=== PATIENT | female | born 1950 ===

== ENCOUNTER 2017-04-29 10:17 | Inpatient (IN) | payer MEDICARE, OTHER ==
--- NOTE | 2017-04-29 11:01 | ED PDOC ---
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 Per pt's , the pt was walking and was on her way for a PCP visit when she fell and landed on her left side. Pt is now complaining of left leg and left groin pain. She denies any numbness or tingling. Pt offers no additional medical complaints. - Fall Fall:Prior To Injury: Tripped Past Medical History Reviewed: Historical Data, Nursing Documentation, Vital Signs Vital Signs: Last Vital Signs Temp 98.5 F 04/29/17 10:30 Pulse 71 04/29/17 10:30 Resp 18 04/29/17 10:30 BP 153/80 H 04/29/17 10:30 Pulse Ox 100 04/29/17 11:07 - Medical History PMH: Osteoporosis - Surgical History Other surgeries: Hysterectomy - Family History Family History: States: Unknown Family Hx - Living Arrangements Living Arrangements: With Family - Social History Current smoker - smoking cessation education provided: No Alcohol: None Drugs: Denies - Allergies Allergies/Adverse Reactions: Allergies Allergy/AdvReac Type Severity Reaction Status Date / Time No Known Allergies Allergy Verified 04/29/17 10:33 Review of Systems ROS Statement: Except As Marked, All Systems Reviewed And Found Negative Musculoskeletal: Positive for: Leg Pain (left), Other (left groin pain) Physical Exam - Reviewed Nursing Documentation Reviewed: Yes Vital Signs Reviewed: Yes - Physical Exam Appears: Positive for: Well, Non-toxic, No Acute Distress Head Exam: Positive for: ATRAUMATIC, NORMAL INSPECTION, NORMOCEPHALIC Skin: Positive for: Normal Color, Warm, DRY Eye Exam: Positive for: Normal appearance, EOMI, PERRL Neck: Positive for: Normal, Supple Cardiovascular/Chest: Positive for: Regular Rate, Rhythm Respiratory: Positive for: Normal Breath Sounds. Negative for: Respiratory Distress Gastrointestinal/Abdominal: Positive for: Soft. 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 Provider Attestation: All medical record entries made by the Scribe were at my direction and personally dictated by me. I have reviewed the chart and agree that the record accurately reflects my personal performance of the history, physical exam, medical decision making, and the department course for this patient. I have also personally directed, reviewed, and agree with the discharge instructions and disposition. 2.15p - case d/w Dr. Jimenes. Advised admission. CT of the pelvis. Case d/w Dr. Marie. Disposition - Clinical Impression Clinical Impression: Pubic ramus fracture - Patient ED Disposition Is Patient to be Admitted: Yes Doctor Will See Patient In The: Hospital - Disposition Disposition: Transfer of Care Disposition Time: 14:00 Condition: FAIR - Pt Status Changed To: Hospital Disposition Of: Observation - POA Present On Arrival: Falls Or Trauma
--- NOTE | 2017-04-29 12:59 | RAD ---
PROCEDURE: Left Hip X-ray Radiographs. HISTORY: trip fall, with groin pain COMPARISON: April 29, 2017. FINDINGS: BONES: Acute fracture through the pelvic ring on the left/pubic bone. JOINTS: Preserved femoral acetabular relationship. Bilateral asymmetric degenerative change. SOFT TISSUES: Normal. OTHER FINDINGS: None. IMPRESSION: Acute fracture through the left pubic bone.
--- NOTE | 2017-04-29 12:59 | RAD ---
PROCEDURE: Radiographs of the pelvis. HISTORY: fall with pain COMPARISON: April 29, 2017. Left hip FINDINGS: BONES: Pelvic Bones: Pelvic ring fracture on the left. The finding is marked on the study for review. Hips: Mild bilaterally symmetric degenerative change. JOINTS: Sacroiliac Joints: Unremarkable. Pubic Symphysis: Unremarkable. OTHER FINDINGS: None. IMPRESSION: Acute nondisplaced fracture through the pelvic ring comet pubic bone on the left.
[2017-04-29] MEDS ORDERED: Naproxen 500 MG TAB PO ONE ×2 (13:10→13:17)
[2017-04-29 16:49] LABS: BASO % 0.1 % (0.0-2.0); EOS % 0.2 % (0.0-4.0); HEMATOCRIT 40.1 % (34.0-47.0); LYMPH # 1.5 K/uL (1.0-4.3); LYMPH % 17.7 % (20.0-40.0); MEAN CELL VOLUME 86.3 fl (81.0-99.0); MEAN CORPUSCULAR HEMOGLOBIN 29.1 pg (27.0-31.0); MEAN CORPUSCULAR HGB CONC 33.7 g/dL (33.0-37.0); MEAN PLATELET VOLUME 7.1 fl (7.2-11.7); MONO # 0.4 K/uL (0.0-0.8); MONO % 4.1 % (0.0-10.0); NEUT # 6.8 K/uL (1.8-7.0); NEUT % 77.9 % (50.0-75.0); RED CELL DISTRIBUTION WIDTH 13.6 % (11.5-14.5); WHITE BLOOD COUNT 8.7 K/uL (4.8-10.8)
--- NOTE | 2017-04-29 16:52 | CT ---
CT pelvis without IV contrast Indication: pubic bone fracture - order as per Dr. Koenig Technique: Contiguous axial images of the abdomen and pelvis. Coronal and Sagittal reformats generated and reviewed. No oral or IV contrast administered. This CT exam was performed using 1 or more of the following dose reduction techniques: Automated exposure control, adjustment of the MAA and/or kV according to patient size, and/or use of iterative reconstruction technique. Radiation dose: Total exam DLP = 602.54 mGy-cm. Comparison: Pelvis radiographs performed 04/29/17 Findings: Comminuted minimally displaced fracture involving the medial aspect of the left superior pubic ramus which appears to extend to the level the pubic symphysis. The remainder of the visualized osseous structures appear intact. Bilateral hip joints are located. Approximately 5 mm anterolisthesis of L5 on S1. No significant joint effusion identified. Soft tissues appear unremarkable. No evidence of radiopaque foreign body. Limited visualization of the intrapelvic contents appear grossly unremarkable. The uterus is absent consistent with hysterectomy. Impression: Comminuted minimally displaced fracture involving the medial aspect of the left superior pubic ramus which appears to extend to the level the pubic symphysis.
[2017-04-29 17:15] LABS: BLOOD UREA NITROGEN 11 mg/dl (7-17); CALCIUM 9.4 mg/dL (8.4-10.2); CARBON DIOXIDE 27 mmol/L (22-30); CHLORIDE 99 mmol/L (98-107); GFR AFRICAN-AMERICAN > 60; GLUCOSE,RANDOM 136 mg/dL (65-105); POTASSIUM 3.2 MMOL/L (3.6-5.0); SODIUM 138 mmol/l (132-148)
--- NOTE | 2017-04-29 17:55 | RAD ---
HISTORY: admission COMPARISON: None available. TECHNIQUE: Chest, one view. FINDINGS: LUNGS: No focal consolidation. Tiny probable left upper lobe calcified granulomas. Please note that chest x-ray has limited sensitivity for the detection of pulmonary masses. PLEURA: No significant pleural effusion identified. No definite pneumothorax . CARDIOVASCULAR: Cardiomegaly. Atherosclerotic calcifications of the aorta. OSSEOUS STRUCTURES: Degenerative changes. VISUALIZED UPPER ABDOMEN: Mild elevation of the right hemidiaphragm. OTHER FINDINGS: None. IMPRESSION: Cardiomegaly.
[2017-04-30 06:49] LABS: HEMATOCRIT 40.1 % (34.0-47.0); MEAN CELL VOLUME 87.1 fl (81.0-99.0); MEAN CORPUSCULAR HEMOGLOBIN 29.2 pg (27.0-31.0); MEAN CORPUSCULAR HGB CONC 33.5 g/dL (33.0-37.0); RED CELL DISTRIBUTION WIDTH 13.5 % (11.5-14.5); WHITE BLOOD COUNT 8.3 K/uL (4.8-10.8)
[2017-04-30 07:25] LABS: ALB/GLOB RATIO 1.3 (1.0-2.1); ALKALINE PHOSPHATASE 89 U/L (38-126); ALT/SGPT 58 U/L (9-52); AST/SGOT 50 U/L (14-36); BILIRUBIN,TOTAL 0.6 mg/dl (0.2-1.3); BLOOD UREA NITROGEN 13 mg/dl (7-17); CALCIUM 9.5 mg/dL (8.4-10.2); CARBON DIOXIDE 25 mmol/L (22-30); CHLORIDE 101 mmol/L (98-107); GFR AFRICAN-AMERICAN > 60; GLUCOSE,RANDOM 93 mg/dL (65-105); POTASSIUM 3.9 MMOL/L (3.6-5.0); SODIUM 138 mmol/l (132-148); TOTAL PROTEIN 8.2 G/DL (6.3-8.2)
[2017-04-30 07:53] LABS: THYROID STIMULATING HORMONE 1.97 mIU/ML (0.46-4.68)
[2017-04-30] MEDS: Enoxaparin 40 mg Syringe SC SCH (09:29)
[2017-04-30] MEDS: Naproxen 500 MG TAB PO PRN (14:00)
[2017-04-30 15:34] VITALS: BMI 25.4
--- NOTE | 2017-04-30 16:22 | CP.PCM.CON ---
History of Present Illness - History of Present Illness History of Present Illness: ID; 66 yo female CC- pain L hip and hemipelvis HPI- 66 yo female presents with pain in are of l hemipelvis after pt presented to ER a [facility] with pain in l hemipelvis after fall.. Pt with some complaint of dizziness at this encounter. 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[employer]) Review of Systems - Hematologic/Lymphatic Additional comments: ROS - p[t compl;ains of some dizziness Past Patient History - Past Medical History & Family History Past Medical History?: Yes - Past Social History Smoking Status: Never Smoked - CARDIAC Hx Cardiac Disorders: Yes Hx Hypercholesterolemia: Yes - PULMONARY Hx Respiratory Disorders: No - NEUROLOGICAL Hx Neurological Disorder: No - HEENT Hx HEENT Problems: Yes Hx Deafness: Yes (hearing deficiency with altered speech) - RENAL Hx Chronic Kidney Disease: No - ENDOCRINE/METABOLIC Hx Endocrine Disorders: No - HEMATOLOGICAL/ONCOLOGICAL Hx Blood Disorders: No - INTEGUMENTARY Hx Dermatological Problems: No - MUSCULOSKELETAL/RHEUMATOLOGICAL Hx Musculoskeletal Disorders: Yes Hx Falls: Yes Hx Osteoporosis: Yes - GASTROINTESTINAL Hx Gastrointestinal Disorders: No - GENITOURINARY/GYNECOLOGICAL Hx Genitourinary Disorders: No - PSYCHIATRIC Hx Psychophysiologic Disorder: No Hx Substance Use: No - SURGICAL HISTORY Hx Surgeries: Yes Hx Hysterectomy: Yes - ANESTHESIA Hx Anesthesia: Yes Hx Anesthesia Reactions: No Hx Malignant Hyperthermia: No Has any member of the family had a problem w/ anesthesia?: No Meds Allergies/Adverse Reactions: Allergies Allergy/AdvReac Type Severity Reaction Status Date / Time No Known Allergies Allergy Verified 04/29/17 10:33 - Medications Medications: Current Medications Acetaminophen (Tylenol 325mg Tab) 650 mg PO Q6 PRN PRN Reason: Pain, severe (8-10) Aspirin (Aspirin Chewable) 81 mg PO DAILY [facility] Last Admin: 04/30/17 09:29 Dose: 81 mg Enoxaparin Sodium (Lovenox) 40 mg SC DAILY [facility] PRN Reason: Protocol Last Admin: 04/30/17 09:29 Dose: 40 mg Home Med (Raloxifene [Evista]) 60 mg PO DAILY [facility] Last Admin: 04/30/17 09:29 Dose: 60 mg Naproxen (Naproxen) 500 mg PO BID PRN PRN Reason: Pain, moderate (4-7) Physical Exam - Additional Findings Additional findings: Systemic- wnl HEENT - wnl chest and lungs clear to A+P abd- benign Cardio - s1/s2 nsr Mysculoskekltal stance/ gait- defrred ROM L hip painless - heel percussion test N/V intact nogross /progeressive deficits orthoedically stable Xray- non disoplaced superior pubic ramus fx Results - Vital Signs Recent Vital Signs: Last Vital Signs Temp 98.8 F 04/30/17 08:28 Pulse 60 04/30/17 08:28 Resp 18 04/30/17 08:28 BP 121/75 04/30/17 08:28 Pulse Ox 96 04/30/17 08:28 - Labs Result Diagrams: 04/30/17 05:40 04/30/17 05:40 - Impressions Impression: Xray- non displaced superior pubic ramus fx CT- non dispalce l superiro pubic ramus fx Assessment & Plan - Assessment and Plan (Free Text) Assessment: A- superior l pubic ramus fx- nondisplaced P- toe touch weight bearing L with walker
--- NOTE | 2017-04-30 21:05 | CP.PCM.HP ---
Past Patient History - Past Medical History & Family History Past Medical History?: Yes - Past Social History Smoking Status: Never Smoked - CARDIAC Hx Cardiac Disorders: Yes Hx Hypercholesterolemia: Yes - PULMONARY Hx Respiratory Disorders: No - NEUROLOGICAL Hx Neurological Disorder: No - HEENT Hx HEENT Problems: Yes Hx Deafness: Yes (hearing deficiency with altered speech) - RENAL Hx Chronic Kidney Disease: No - ENDOCRINE/METABOLIC Hx Endocrine Disorders: No - HEMATOLOGICAL/ONCOLOGICAL Hx Blood Disorders: No - INTEGUMENTARY Hx Dermatological Problems: No - MUSCULOSKELETAL/RHEUMATOLOGICAL Hx Musculoskeletal Disorders: Yes Hx Falls: Yes Hx Osteoporosis: Yes - GASTROINTESTINAL Hx Gastrointestinal Disorders: No - GENITOURINARY/GYNECOLOGICAL Hx Genitourinary Disorders: No - PSYCHIATRIC Hx Psychophysiologic Disorder: No Hx Substance Use: No - SURGICAL HISTORY Hx Surgeries: Yes Hx Hysterectomy: Yes - ANESTHESIA Hx Anesthesia: Yes Hx Anesthesia Reactions: No Hx Malignant Hyperthermia: No Has any member of the family had a problem w/ anesthesia?: No Meds Allergies/Adverse Reactions: Allergies Allergy/AdvReac Type Severity Reaction Status Date / Time No Known Allergies Allergy Verified 04/29/17 10:33 Results - Vital Signs Recent Vital Signs: Last Vital Signs Temp 98.8 F 04/30/17 08:28 Pulse 60 04/30/17 08:28 Resp 18 04/30/17 08:28 BP 121/75 04/30/17 08:28 Pulse Ox 96 04/30/17 08:28 - Labs Result Diagrams: 04/30/17 05:40 04/30/17 05:40
--- NOTE | 2017-05-01 07:23 | CARD ---
APPROVED REPORT EKG Measurement Heart [id number] <Conclusion> Normal sinus rhythm Right bundle branch block Abnormal ECG
[2017-05-01] MEDS: Enoxaparin 40 mg Syringe SC SCH (08:32)
--- NOTE | 2017-05-01 08:41 | CP.PCM.PN ---
Subjective - Date & Time of Evaluation Date of Evaluation: 05/01/17 Time of Evaluation: 08:35 - Subjective Subjective: S pt with minimal post op discomfort Objective - Vital Signs/Intake and Output Vital Signs (last 24 hours): Temp Pulse Resp BP Pulse Ox 97.9 F 66 20 109/70 100 05/01/17 08:19 05/01/17 08:19 05/01/17 08:19 05/01/17 08:19 05/01/17 08:19 - Medications Medications: Current Medications Acetaminophen (Tylenol 325mg Tab) 650 mg PO Q6 PRN PRN Reason: Pain, severe (8-10) Aspirin (Aspirin Chewable) 81 mg PO DAILY [facility] Last Admin: 05/01/17 08:31 Dose: 81 mg Enoxaparin Sodium (Lovenox) 40 mg SC DAILY [facility] PRN Reason: Protocol Last Admin: 05/01/17 08:32 Dose: 40 mg Home Med (Raloxifene [Evista]) 60 mg PO DAILY [facility] Last Admin: 05/01/17 08:31 Dose: 60 mg Naproxen (Naproxen) 500 mg PO BID PRN PRN Reason: Pain, moderate (4-7) Last Admin: 04/30/17 14:00 Dose: 500 mg - Skin Additional comments: Objective stance/gait- defrred remainder of systemic o/e wnl Muscuoloskekeltal stance/ gait - defrred + tenderness to pelvic compression Xray- nondisplaced superior pubic ramus fx Assessment and Plan - Assessment and Plan (Free Text) Assessment: A- s/p pelvic fx P- copntinue restricted weight bearing
[2017-05-01] MEDS: Naproxen 500 MG TAB PO PRN (10:00)
--- NOTE | 2017-05-01 22:43 | CP.PCM.PN ---
Subjective - Date & Time of Evaluation Date of Evaluation: 05/01/17 Time of Evaluation: 09:00 - Subjective Subjective: ortho on board. PT advise toe touch bearing c\o pain in left groin area Objective - Vital Signs/Intake and Output Vital Signs (last 24 hours): Temp Pulse Resp BP Pulse Ox 97.6 F 75 17 127/81 97 05/01/17 15:57 05/01/17 15:57 05/01/17 15:57 05/01/17 15:57 05/01/17 15:57 - Medications Medications: Current Medications Acetaminophen (Tylenol 325mg Tab) 650 mg PO Q6 PRN PRN Reason: Pain, severe (8-10) Aspirin (Aspirin Chewable) 81 mg PO DAILY [facility] Last Admin: 05/01/17 08:31 Dose: 81 mg Enoxaparin Sodium (Lovenox) 40 mg SC DAILY [facility] PRN Reason: Protocol Last Admin: 05/01/17 08:32 Dose: 40 mg Home Med (Raloxifene [Evista]) 60 mg PO DAILY [facility] Last Admin: 05/01/17 08:31 Dose: 60 mg Naproxen (Naproxen) 500 mg PO BID PRN PRN Reason: Pain, moderate (4-7) Last Admin: 05/01/17 10:00 Dose: 500 mg
--- NOTE | 2017-05-02 08:11 | CP.PCM.PN ---
Subjective - Date & Time of Evaluation Date of Evaluation: 05/02/17 Time of Evaluation: 08:10 - Subjective Subjective: s- PT WITH MAREKED IMPROVEMENT IN PELVIC DISCOMFORT Objective - Vital Signs/Intake and Output Vital Signs (last 24 hours): Temp Pulse Resp BP Pulse Ox 97.6 F 75 17 127/81 97 05/01/17 15:57 05/01/17 15:57 05/01/17 15:57 05/01/17 15:57 05/01/17 15:57 - Medications Medications: Current Medications Acetaminophen (Tylenol 325mg Tab) 650 mg PO Q6 PRN PRN Reason: Pain, severe (8-10) Aspirin (Aspirin Chewable) 81 mg PO DAILY [facility] Last Admin: 05/01/17 08:31 Dose: 81 mg Enoxaparin Sodium (Lovenox) 40 mg SC DAILY [facility] PRN Reason: Protocol Last Admin: 05/01/17 08:32 Dose: 40 mg Home Med (Raloxifene [Evista]) 60 mg PO DAILY [facility] Last Admin: 05/01/17 08:31 Dose: 60 mg Naproxen (Naproxen) 500 mg PO BID PRN PRN Reason: Pain, moderate (4-7) Last Admin: 05/01/17 10:00 Dose: 500 mg - Additional Findings Additional findings: Systemic - unchenged/wnl Musculoskekltal stance/gait- defrred pt with dec reased tenderness to pelvic compression orthopedically stable Assessment and Plan - Assessment and Plan (Free Text) Assessment: A- s/p nondisplaced pubic ramus fx P- physio orthopedically stable foir d/c/transfer to subacute
[2017-05-02 08:20] VITALS: BP 101/64; PULSE 69; RESP 20; TEMP 97.9; O2SAT 98
[2017-05-02] MEDS: Enoxaparin 40 mg Syringe SC SCH (08:44)
== END 2017-05-02 13:50 | disposition home or self-care (01) | DRG 536 ==
LOC: H.ER 10:17 → H.ERHOLD 14:21 → H.MEDSURG1 20:20 → OBSVTOIN 04-30 14:34
PROVIDERS: ADMIT Internal Medicine; ATTEND Internal Medicine
DX: S32.512A Fracture of superior rim of left pubis, initial encounter for closed fracture (principal); H91.90 Unspecified hearing loss, unspecified ear; M81.0 Age-related osteoporosis without current pathological fracture; W18.30XA Fall on same level, unspecified, initial encounter; Y92.9 Unspecified place or not applicable